=== PATIENT | female | born 1955 | race Caucasian/White ===

== ENCOUNTER 2022-01-09 07:33 | Emergency (ER) | payer MEDICARE, BC ==
[2022-01-09 08:40] LABS: ESTIMATED GFR 70 mL/min (>60)
== END 2022-01-09 09:24 | disposition home or self-care (01) ==
LOC: JP.ED 07:33
DX: R03.0 Elevated blood-pressure reading, without diagnosis of hypertension (principal); E03.9 Hypothyroidism, unspecified; Z88.1 Allergy status to other antibiotic agents; Z79.899 Other long term (current) drug therapy; Z87.891 Personal history of nicotine dependence
CPT/HCPCS: 36415; 80053; 83605; 84484; 85025; 93005; 99285

== ENCOUNTER 2023-09-23 17:46 | Emergency (ER) | payer MEDICARE, BC | END 2023-09-23 20:32 | disposition home or self-care (01) | LOC: JP.ED 17:46 | DX: M79.661 Pain in right lower leg (principal); E03.9 Hypothyroidism, unspecified; Z88.0 Allergy status to penicillin; Z88.6 Allergy status to analgesic agent; Z79.899 Other long term (current) drug therapy; Z87.891 Personal history of nicotine dependence | CPT/HCPCS: 93971-RT; 99283 ==

== ENCOUNTER 2024-01-16 00:50 | Emergency (ER) | payer MEDICARE, BC | END 2024-01-16 01:40 | disposition home or self-care (01) | LOC: JP.ED 00:50 | DX: J18.9 Pneumonia, unspecified organism (principal); E03.9 Hypothyroidism, unspecified; Z88.0 Allergy status to penicillin; Z88.8 Allergy status to other drugs, medicaments and biological substances; Z79.890 Hormone replacement therapy; Z79.899 Other long term (current) drug therapy; Z87.891 Personal history of nicotine dependence | CPT/HCPCS: 99283; 99284 ==